=== PATIENT | female | born 1970 | race Caucasian/White ===

== ENCOUNTER 2020-11-09 16:55 | Emergency (ER) | payer MEDICAID ==
--- NOTE | 2020-11-09 18:03 | EDM.PDOC ---
ED HPI GENERAL MEDICAL PROBLEM - General Chief Complaint: General Stated Complaint: PAIN AND BURNING IN L LEG Time Seen by Provider: 11/09/20 18:10 Source of Information: Reports: Patient, RN - History of Present Illness INITIAL COMMENTS - FREE TEXT/NARRATIVE: Mackenzie is a 50 year old female whom presents to ER with left lower leg pain, burning, tingling, deep ache and swelling. Mackenzie was diagnosed with COVID illness mid October and was in bed for almost 2 weeks with illness. Mackenzie report fever resolved 4 days ago and has not taken any medications for pain since fever resolution. Mackenzie was goggling left pain and COVID illness and is concerned about DVT. Mackenzie is concerned regarding blood clot in her leg. Mackenzie report mild headache but declined concern and dose not want medication for pain or headache evaluated at this time as she fells it is residual [id number] of COVID illness. Mackenzie report pain over the last 3-4 days but more concerning today. Left Leg Pain Score (Numeric/FACES): 3 - Related Data Allergies Allergy/AdvReac Type Severity Reaction Status Date / Time No Known Allergies Allergy Verified 11/09/20 18:07 Home Meds: Home Meds NK [No Known Home Meds] 11/09/20 [History] ED ROS GENERAL - Review of Systems Review Of Systems: Comprehensive ROS is negative, except as noted in HPI. ED EXAM, GENERAL - Physical Exam Exam: See Below Exam Limited By: No Limitations General Appearance: Alert, WD/WN, No Apparent Distress Eye Exam: Bilateral Eye: Normal Inspection Ears: Hearing Grossly Normal Nose: Normal Inspection Throat/Mouth: Normal Voice, No Airway Compromise Head: Atraumatic Neck: Normal Inspection, Full Range of Motion Respiratory/Chest: No Respiratory Distress, Lungs Clear, Normal Breath Sounds Cardiovascular: Normal Peripheral Pulses, Regular Rate, Rhythm Extremities: Normal Inspection, Normal Capillary Refill, Leg Pain (left posterior calf with slight increased swelling.). No: Pedal Edema, Increased Warmth, Redness Neurological: Alert, Oriented, CN II-XII Intact, Normal Cognition, Normal Gait Psychiatric: Normal Affect, Normal Mood Skin Exam: Warm, Dry, Intact, Normal Color, No Rash Course - Vital Signs Last Recorded V/S: Last Vital Signs Temp 36.6 C 11/09/20 18:06 Pulse 88 11/09/20 18:06 Resp 16 11/09/20 18:06 BP 146/90 H 11/09/20 18:06 Pulse Ox 92 L 11/09/20 18:06 - Orders/Labs/Meds Orders: Active Orders 24 hr Category Date Time Status VL Duplex Lwr Ext Veins Ltd Lt [US] Stat Exams 11/09/20 18:11 Ordered - Re-Assessments/Exams Free Text/Narrative Re-Assessment/Exam: Mackenzie is requesting ice water for headache and ultrasound left leg to evaluation for DVT. Venous US ordered. Blood work will likely not be helpful due to known elevated d dimer common with COVID illness. Mackenzie has not take Aspirin or anything for pain. 11/09/20 18:36 [employer] reports: No acute DVT noted but calf vascular (venous) anatomy bifurcation is lower than expected. Repeat study in 2 weeks if contineud symptoms or not improving 11/09/20 19:38 Departure - Departure Time of Disposition: 19:44 Disposition: Home, Self-Care 01 Clinical Impression: Elevated blood pressure reading, Strain of left calf muscle - Discharge Information Instructions: Hamstring Strain, Muscle Strain, Hypertension, Adult Referrals: PCP,None [Primary Care Provider] - Forms: ED Department Discharge Additional Instructions: 1. Ultrasound of your left leg today is negative for Deep or superficial venous clot or DVT. 2. Ensure adequate hydration and physical activity per comfort after COVID illness. 3. Post COVID symptoms can last weeks to months after resolution of fever or acute illness. 4. Contact clinic of choice for recheck in 2 weeks if not improving, sooner if new, worsening symptoms or concerns. Sepsis Event Note (ED) - Focused Exam Vital Signs: Vital Signs Temp Pulse Resp BP Pulse Ox 11/09/20 18:06 36.6 C 88 16 146/90 H 92 L 11/09/20 17:29 36.6 C 88 16 146/90 H 92 L - My Orders Last 24 Hours: My Active Orders 11/09/20 18:11 VL Duplex Lwr Ext Veins Ltd Lt [US] Stat - Assessment/Plan Last 24 Hours: My Active Orders 11/09/20 18:11 VL Duplex Lwr Ext Veins Ltd Lt [US] Stat
--- NOTE | 2020-11-11 09:00 | US ---
VL Duplex Lwr Ext Veins Ltd Lt INDICATION: leg burning and swelling (recent COVID) Dx FINDINGS: Ultrasound examination of the lower extremity using Doppler and compressive technique demonstrates that the common femoral, femoral, and popliteal veins are patent, and negative for thrombus. The calf veins were segmentally visualized and are negative where seen. IMPRESSION: Negative for deep venous thrombosis.
== END 2020-11-09 20:11 | disposition home or self-care (01) ==
LOC: JP.ED 16:55
DX: S86.912A Strain of unspecified muscle(s) and tendon(s) at lower leg level, left leg, initial encounter (principal); R03.0 Elevated blood-pressure reading, without diagnosis of hypertension; Z86.16 Personal history of COVID-19; X58.XXXA Exposure to other specified factors, initial encounter
CPT/HCPCS: 93971-26-LT; 93971-LT; 99283-25